=== PATIENT | female | born 1990 | race Hispanic/Latino ===

== ENCOUNTER 2019-06-06 22:33 | Emergency (ER) | payer MEDICAID, OTHER ==
[~2019-06-06 22:33] MED LIST: PREN-196 PO
[2019-06-06 23:44] LABS: BASOPHILS % (AUTO) 0.3 % (0.0-5.0); EOSINOPHILS % (AUTO) 0.9 % (0.0-8.0); HEMATOCRIT 38.3 % (36-48); LYMPHOCYTES % (AUTO) 29.4 % (21.0-51.0); MEAN CORPUSCULAR HEMOGLOBIN 29.3 pg (27.0-33.0); MEAN CORPUSCULAR HGB CONC 33.6 g/dL (32.0-36.0); MEAN CORPUSCULAR VOLUME 87.1 fL (79-99); MONOCYTES % (AUTO) 6.7 % (3.0-13.0); NEUTROPHILS % (AUTO) 62.7 % (40.0-77.0); NUCLEATED RED BLOOD CELLS 0.1 % (0.0-0.19); PLATELET COUNT (AUTO) 284 K/uL (130-400); RED CELL DISTRIBUTION WIDTH 13.8 % (11.0-15.5); WHITE BLOOD COUNT (AUTO) 11.8 K/uL (4.8-10.8)
== END 2019-06-07 00:25 | disposition home or self-care (01) ==
LOC: EDH 22:33
DX: O20.9 Hemorrhage in early pregnancy, unspecified (principal); Z3A.09 9 weeks gestation of pregnancy; Z90.49 Acquired absence of other specified parts of digestive tract
CPT/HCPCS: 36415; 76801; 84702; 85025; 86900; 86901

== ENCOUNTER 2019-12-30 02:15 | Inpatient (IN) | payer OTHER ==
[~2019-12-30] VITALS: Ht 177.8 cm; Wt 54.4 kg
[2019-12-30] MEDS ORDERED: LACTATED RINGERS 1000ML 1,000 ML IV PRN (03:06)
[2019-12-30] MEDS ORDERED: AMPICILLIN 2GM+NS 100ML 100 ML IV SCH (03:15)
[2019-12-30 03:17] LABS: HEMATOCRIT 36.1 % (36-48); MEAN CORPUSCULAR HEMOGLOBIN 28.6 pg (27.0-33.0); MEAN CORPUSCULAR HGB CONC 32.7 g/dL (32.0-36.0); MEAN CORPUSCULAR VOLUME 87.6 fL (79-99); PLATELET COUNT (AUTO) 263 K/uL (130-400); RED BLOOD CELL COUNT(AUTO) 4.12 MIL/uL (4.00-5.50); RED CELL DISTRIBUTION WIDTH 13.6 % (11.0-15.5); WHITE BLOOD COUNT (AUTO) 9.7 K/uL (4.8-10.8)
[2019-12-30] MEDS ORDERED: AMPICILLIN 2GM+NS 100ML 100 ML IV ONE (03:17)
[2019-12-30] MEDS ORDERED: ROPIVACAINE 0.2% 100ML VIAL 100 ML EP PRN (03:30)
[2019-12-30] MEDS ORDERED: MEPERIDINE-PF 50 MG/ML SYG IVP PRN (03:30)
[2019-12-30] MEDS ORDERED: EPHEDRINE SULFATE 50 MG/ML AMPULE IVP PRN (03:30)
[2019-12-30] MEDS ORDERED: LACTATED RINGERS 500 ML 500 ML IV PRN (03:30)
[2019-12-30] MEDS ORDERED: PROMETHAZINE HCL 25 MG/ML 1ML AMPULE IM PRN (03:30)
[2019-12-30] MEDS ORDERED: OXYTOCIN-LR 20 UNITS/1000 ML 1,000 ML IV SCH (03:30)
[2019-12-30] MEDS ORDERED: NALOXONE HCL 0.4 MG/1 ML ML IV PRN (03:30)
[2019-12-30 03:33] VITALS: BP 147/75
[2019-12-30] MEDS ORDERED: LIDOCAINE HCL 1% 20 ML VIAL ONE (03:56)
[2019-12-30] MEDS ORDERED: DIPH,PERTUSS(ACELL),TET VAC/PF 0.5 ML VIAL IM PRN (05:00)
[2019-12-30] MEDS ORDERED: LANOLIN 30GM OINTMENT TP PRN (05:00)
[2019-12-30] MEDS ORDERED: BENZOCAINE/LANOLIN/ALOE VERA 60 ML AEROSOL TP PRN (05:00)
[2019-12-30] MEDS ORDERED: WITCH HAZEL 1 PAD TP PRN (05:00)
[2019-12-30] MEDS ORDERED: AMPICILLIN 1GM+NS 50ML 50 ML IV SCH (07:15)
[2019-12-30 07:45] VITALS: BP 138/86
[2019-12-30] MEDS ORDERED: OXYTOCIN 10 USP UNITS/ML 20 UNIT in LACTATED RINGERS 1000ML 1,000 ML IV SCH (08:00)
[2019-12-30] MEDS: IBUPROFEN 600 MG TABLET PO PRN (08:00)
[2019-12-30] MEDS: DOCUSATE SODIUM 100 MG CAP PO SCH ×2 (08:00→20:52)
--- NOTE | 2019-12-30 08:00 | NUR ---
REG DIET GIVEN NO N/V AT THIS TIME.
--- NOTE | 2019-12-30 10:00 | NUR ---
resting holding baby at side.
[2019-12-30 12:00] VITALS: BP 124/73
[2019-12-30] MEDS: ACETAMINOPHEN 325 MG TAB PO PRN ×2 (12:00→20:52)
--- NOTE | 2019-12-30 12:00 | NUR ---
mother and eating reg diet at bedside.
--- NOTE | 2019-12-30 14:00 | NUR ---
resting at side. voices no concerns.
[2019-12-30 16:00] VITALS: BP 140/80
--- NOTE | 2019-12-30 16:00 | NUR ---
pt in bed NB in arms voices no concerns.
--- NOTE | 2019-12-30 18:00 | NUR ---
voices no concerns. resting in bed watching tv at side.
[2019-12-30 20:00] VITALS: BP 127/86
--- NOTE | 2019-12-30 21:11 | NUR ---
Explaining tylenol for perineal ache and colace to prevent constipation & straining with BM, pt voices understanding & agrees to med administration. Instructing to call for any concerns or questions and informing available pain med if needed. Addendum: 12/30/19 at 2111 by JUNIOR TORRES RN RN Amended: Links added.
[2019-12-31 00:30] VITALS: BP 125/75
[2019-12-31 06:23] LABS: MEAN CORPUSCULAR HEMOGLOBIN 28.1 pg (27.0-33.0); MEAN CORPUSCULAR HGB CONC 32.2 g/dL (32.0-36.0); MEAN CORPUSCULAR VOLUME 87.2 fL (79-99); PLATELET COUNT (AUTO) 214 K/uL (130-400); RED BLOOD CELL COUNT(AUTO) 3.67 MIL/uL (4.00-5.50); RED CELL DISTRIBUTION WIDTH 13.7 % (11.0-15.5); WHITE BLOOD COUNT (AUTO) 12.8 K/uL (4.8-10.8)
[2019-12-31 07:42] VITALS: BP 133/69
--- NOTE | 2019-12-31 08:35 | NUR ---
CALLED [facility] FOR RECORDS/ GBS STATUS. OFFICE WAS CLOSED AT THIS TIME.
[2019-12-31] MEDS: DOCUSATE SODIUM 100 MG CAP PO SCH (08:47)
[2019-12-31] MEDS: IBUPROFEN 600 MG TABLET PO PRN (08:50)
--- NOTE | 2019-12-31 10:55 | NUR ---
INFORMED ON PATIENT'S STATUS. MD TO ROUND ON PATIENT TODAY.
[2019-12-31 11:30] VITALS: BP 116/70
--- NOTE | 2019-12-31 11:50 | NUR ---
ROUNDING ON PATIENT. NEW ORDERS RECEIVED. PATIENT OKAY TO DISCHARGE HOME.
--- NOTE | 2019-12-31 13:35 | NUR ---
PATIENT LEFT UNIT VIA WHEELCHAIR WITH BELONGINGS IN HAND. PERSONAL VEHICLE USED FOR TRANSPORTATION ACCOMPANIED BY SIGNIFICANT OTHER. BABY TO STAY IN NURSERY. NO COMPLAINTS OR CONCERNS ADDRESSED FROM PATIENT ON DISCHARGE.
[2020-01-01 07:10] LABS: HEPATITIS Bs ANTIGEN SCREEN P Negative (Negative)
== END 2019-12-31 13:35 | disposition home or self-care (01) | DRG 807 ==
LOC: EDH 02:15 → LDH 02:16 → OBSVTOIN 02:16 → WSH 06:25
PROVIDERS: ADMIT Internal Medicine; ATTEND Internal Medicine
PROC: 10E0XZZ Delivery of Products of Conception, External Approach (ICD-10-PCS; principal; 2019-12-30)
PROC: 0KQM0ZZ Repair Perineum Muscle, Open Approach (ICD-10-PCS; 2019-12-30)
PROC: 3E0234Z Introduction of Serum, Toxoid and Vaccine into Muscle, Percutaneous Approach (ICD-10-PCS; 2019-12-30)
DX: O70.1 Second degree perineal laceration during delivery (principal); Z37.0 Single live birth; Z3A.38 38 weeks gestation of pregnancy; Z23 Encounter for immunization
CPT/HCPCS: 36415; 85027; 86592; 86701; 86850; 86900; 86901; 87340; 87390; G0378; J0290; J2590

== ENCOUNTER 2022-01-30 17:18 | Observation (INO) | payer OTHER ==
[~2022-01-30] VITALS: Ht 152.4 cm; Wt 54.0 kg
[2022-01-30 17:20] VITALS: BP 143/77
[2022-01-30 17:49] LABS: APPEARANCE,URINE Cloudy (CLEAR); BILIRUBIN,URINE Negative (NEGATIVE); COLOR,URINE Yellow (YELLOW); GLUCOSE, URINE (UA) Negative (NEGATIVE); KETONES,URINE Negative (NEGATIVE); LEUKOCYTE ESTERASE ,URINE Large (NEGATIVE); NITRATE,URINE Negative (NEGATIVE); OCCULT BLOOD,URINE Negative (NEGATIVE); PH,URINE 6.5 (5.0-8.0); PROTEIN,URINE Trace mg/dL (NEGATIVE)
[2022-01-30 18:14] LABS: BACTERIA,URINE Few /HPF (None Seen); MUCUS,URINE Few LPF (None Seen); SQUAMOUS EPITHELIAL CELL,UR Moderate /HPF (0-2)
== END 2022-01-30 19:40 | disposition home or self-care (01) ==
LOC: EDH 17:18 → LDH 17:19
PROVIDERS: ADMIT Obstetrics & Gynecology; ATTEND Obstetrics & Gynecology
DX: O62.9 Abnormality of forces of labor, unspecified (principal); O36.8130 Decreased fetal movements, third trimester, not applicable or unspecified; Z3A.37 37 weeks gestation of pregnancy
CPT/HCPCS: 81001; 87088; G0378 ×2; G0379

== ENCOUNTER 2022-02-05 02:44 | Inpatient (IN) | payer OTHER ==
[~2022-02-05] VITALS: Ht 149.9 cm; Wt 70.8 kg
[2022-02-05] MEDS ORDERED: OXYTOCIN 10 UNIT/1ML 10ML VIAL ONE (02:56)
[2022-02-05] MEDS ORDERED: OXYTOCIN-LR 20 UNITS/1000 ML 1,000 ML IV ONE (02:59)
[2022-02-05] MEDS ORDERED: LACTATED RINGERS 1000ML 1,000 ML IV PRN (03:30)
[2022-02-05] MEDS ORDERED: WITCH HAZEL 1 PAD TP PRN (03:30)
[2022-02-05] MEDS ORDERED: DIPH,PERTUSS(ACELL),TET VAC/PF 0.5 ML VIAL IM PRN (03:30)
[2022-02-05] MEDS ORDERED: MEASLES/MUMPS/RUBELLA VACCINE, LIVE 0.5 ML/VIAL SQ PRN (03:30)
[2022-02-05] MEDS ORDERED: BENZOCAINE/LANOLIN/ALOE VERA 60 ML AEROSOL TP PRN (03:30)
[2022-02-05] MEDS ORDERED: ACETAMINOPHEN 325 MG TAB PO PRN (03:30)
[2022-02-05] MEDS ORDERED: ACETAMINOPHEN WITH CODEINE 1 TAB TAB PO PRN (03:30)
[2022-02-05] MEDS ORDERED: LANOLIN 30GM OINTMENT TP PRN (03:30)
[2022-02-05 03:35] LABS: HEMATOCRIT 36.1 % (36-48); PLATELET COUNT (AUTO) 259 K/uL (130-400); RED CELL DISTRIBUTION WIDTH 15.7 % (11.0-15.5); WHITE BLOOD COUNT (AUTO) 10.5 K/uL (4.8-10.8)
[2022-02-05] MEDS: IBUPROFEN 600 MG TABLET PO PRN ×2 (04:13→17:53)
[2022-02-05] MEDS: OXYTOCIN-LR 20 UNITS/1000 ML 1,000 ML IV SCH ×2 (04:15→20:23)
[2022-02-05 05:25] VITALS: BP 144/79
[2022-02-05 07:32] VITALS: BP 114/75
[2022-02-05] MEDS: DOCUSATE SODIUM 100 MG CAP PO SCH ×2 (08:01→20:56)
[2022-02-05 11:50] VITALS: BP 131/74
[2022-02-05 16:00] VITALS: BP 135/86
[2022-02-05 19:27] VITALS: BP 109/68
[2022-02-05 23:08] VITALS: BP 119/74
[2022-02-06 03:13] VITALS: BP 121/78
[2022-02-06 06:54] LABS: HEMATOCRIT 32.4 % (36-48); MEAN CORPUSCULAR HEMOGLOBIN 26.2 pg (27.0-33.0); MEAN CORPUSCULAR HGB CONC 30.9 g/dL (32.0-36.0); MEAN CORPUSCULAR VOLUME 84.8 fL (79-99); RED BLOOD CELL COUNT(AUTO) 3.82 MIL/uL (4.00-5.50); RED CELL DISTRIBUTION WIDTH 15.8 % (11.0-15.5); WHITE BLOOD COUNT (AUTO) 9.9 K/uL (4.8-10.8)
[2022-02-06 07:26] VITALS: BP 127/76
[2022-02-06] MEDS: DOCUSATE SODIUM 100 MG CAP PO SCH (07:50)
[2022-02-06] MEDS: IBUPROFEN 600 MG TABLET PO PRN (07:51)
[2022-02-06 11:41] VITALS: BP 120/84
[2022-02-06 11:43] VITALS: BP 120/84
== END 2022-02-06 13:50 | disposition home or self-care (01) | DRG 807 ==
LOC: EDH 02:44 → UNDOADMOB 02:45 → OBSVTOIN 02:45 → LDH 02:45 → WSH 05:20 → LDH 05:20
PROVIDERS: ADMIT Obstetrics & Gynecology; ATTEND Obstetrics & Gynecology
PROC: 10E0XZZ Delivery of Products of Conception, External Approach (ICD-10-PCS; principal; 2022-02-05)
DX: O69.81X0 Labor and delivery complicated by cord around neck, without compression, not applicable or unspecified (principal); Z37.0 Single live birth; Z3A.38 38 weeks gestation of pregnancy
CPT/HCPCS: 36415; 85027; 86592; 86850; 86900; 86901; 87340; 90707; 90715; G0378; J2590